=== PATIENT | male | born 1950 | race African-American/Black ===

== ENCOUNTER 2018-02-27 19:07 | Observation (INO) | payer MEDICARE ==
[2018-02-27 20:28] LABS: Troponin I 0.063 ng/mL (< 0.028)
[2018-02-27 23:37] LABS: Troponin I 0.072 ng/mL (< 0.028)
[2018-02-28] MEDS ORDERED: Guaifenesin DM 100-10/5 ML UDCUP PO PRN (00:47)
[2018-02-28] MEDS ORDERED: Acetaminophen 325 MG TAB PO PRN (00:47)
[2018-02-28] MEDS ORDERED: Senokot 8.6 MG TAB PO PRN (00:47)
[2018-02-28] MEDS ORDERED: Enoxaparin Sodium 80 MG/0.8 ML SYRINGE SC SCH (01:00)
[2018-02-28] MEDS: Sodium Chloride 0.9% 1,000 ML IV SCH ×2 (01:34→20:16)
[2018-02-28 01:59] VITALS: BMI 29.1
--- NOTE | 2018-02-28 04:26 | HP ---
REASON FOR ADMISSION: Possible transient ischemic attack, demand ischemia. HISTORY OF PRESENT ILLNESS: Please note patient does not recall why he is here in the hospital. Apparently, he was on the toilet and was unresponsive. He has had prior history of stroke 2 months back and the was concerned he might be having another stroke, so she took him to [facility]. He had complained of diarrhea yesterday and had right knee pain and he apparently hit his knee yesterday. Currently, he has no complaints of chest pain or palpitation. He is able to move all 4 extremities. He is talking fluently. The patient has trouble with memory. When he had a stroke 2 months back, patient had right-sided weakness and had some facial droop and dysarthria as well. The initial NIH was 9 and on arrival here, patient had NIH of 3. No complaints of fever. No complaints of cough or expectoration. 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 CURRENT MEDICATIONS: The patient is on Tylenol with Codeine as needed, Neurontin 300 mg with unknown frequency, atenolol 25 mg with unknown frequency, ranitidine 150 mg with unknown frequency, paroxetine 20 mg with unknown frequency, atorvastatin 20 mg at bedtime, lisinopril with hydrochlorothiazide 10 /12.5 mg daily. ALLERGIES: Allergic to PENICILLIN. PERSONAL HISTORY: Does not abuse alcohol or drugs. FAMILY HISTORY: The patient states his mom is still living and she lives with them. She has diabetes. Father of alcohol related complications at the age of 57 years. The patient lives with his second and has been for nearly 17 years. He has a total of 5 kids. REVIEW OF SYSTEMS: The following complete review of systems was negative, unless otherwise mentioned in the HPI or below: Constitutional: Weight loss or gain, ability to conduct usual activities. Skin: Rash, itching. Eyes: Double vision, pain. ENT/Mouth: Nose bleeding, neck stiffness, pain, tenderness. Cardiovascular: Palpitations, dyspnea on exertion, orthopnea. Respiratory: Shortness of breath, wheezing, cough, hemoptysis, fever or night sweats. Gastrointestinal: Poor appetite, abdominal pain, heartburn, nausea, vomiting, constipation, or diarrhea. Genitourinary: Urgency, frequency, dysuria, nocturia. Musculoskeletal: Pain, swelling. Neurologic/Psychiatric: Anxiety, depression. Allergy/Immunologic: Skin rash, bleeding tendency. CODE STATUS: FULL. Power of managing attorney is his . PHYSICAL EXAMINATION: GENERAL: The patient is a 67-year-old male who is currently not in any acute distress. VITAL SIGNS: Blood pressure 140/94, pulse 54 per minute, respiratory rate 18 per minute, temperature 97.9 degrees Fahrenheit, saturating 94% on room air. NECK: Supple, no elevated JVD. HEENT: Eyes: Extraocular muscles intact. Pupils reacting to light. Oral cavity: Mucous membranes are moist. No exudates or congestion. CARDIOVASCULAR SYSTEM: S1, S2 heard. Regular rhythm. RESPIRATORY SYSTEM: Air entry 1+ bilateral. No rales or rhonchi. ABDOMEN: Soft, bowel sounds heard. No tenderness, rigidity or guarding. EXTREMITIES: No peripheral edema. The patient has tenderness over the right knee. He appears to have mild effusion in the right knee. It is warm to touch , but no obvious tenderness over patella or the medial or lateral condyles. No tenderness over the tibial tuberosity either. Active and passive range of movements are normal. CENTRAL NERVOUS SYSTEM: He is alert and awake, responds well to questions. Cranial nerves are grossly intact. Strength is 5/5 in all four extremities. Reflexes are 2+ bilateral. Gait was not tested. PSYCHIATRIC SYSTEM: The patient's mood is euthymic. No hallucinations or delusions. LABORATORY DATA AND X-RAY FINDINGS: EKG done shows 73 beats per minute with nonspecific ST-T wave changes. White count of 6, H&H 15 and 47, platelet count 112 with 76% neutrophils. BUN 16, creatinine 1.4, serum bicarbonate 26, troponin I indeterminate peaking up to 0.10. CK-MB is 5.3. Liver enzymes are within normal limits. Albumin is 4.1. CT brain shows no acute intracranial abnormalities. Chest x-ray done shows no acute cardiopulmonary abnormalities. CLINICAL IMPRESSION AND PLAN: The patient will be under observation on the stroke unit. He has indeterminate cardiac enzymes and is for transient ischemic attack rule out. The patient has had recent cerebrovascular accident 2 months back with right-sided weakness. He also has tenderness over the right knee with recent injury. He seems to think it is one of his grandkids fell on his knee. We will follow transient ischemic attack evidence based protocol. He will have MRI and echo with 2D Doppler for left ventricular function. We will obtain lipid profile in the morning. He will be on aspirin 81 mg daily and we will keep a close eye on the platelets. We will continue his atenolol 25 mg daily, lisinopril 10 mg twice daily. We will switch him from Lipitor to Crestor 20 mg p.o. at bedtime and continue his Paxil as before. He will be gently hydrated with 60 mL per hour normal saline. The patient has a creatinine of 1.4, will be closely monitored. We will obtain a repeat EKG and see if nonspecific ST-T wave changes resolve or might be a chronic finding. JAIR
[2018-02-28 05:43] LABS: Anion Gap 9 mmol/L (10-20); BUN (Urea Nitrogen) 14 mg/dL (8.4-25.7); Calc. Creatinine Clearance 77 mL/min (70-130); Calcium 8.6 mg/dL (7.8-10.44); Carbon Dioxide 28 mmol/L (23-31); Cardiac Risk 2.6 (Less than 4.5); Chloride 106 mmol/L (98-107); Cholesterol 97 mg/dl (< 200 Desired); Estimated GFR-MDRD 74; Glucose 98 mg/dL (80-115); HDL Cholesterol 37 mg/dL (>60 Neg Risk); LDL Cholesterol, Calculated 49 mg/dL; Potassium 3.3 mmol/L (3.5-5.1); Sodium 140 mmol/L (136-145); Triglycerides 55 mg/dL (Less than 150)
[2018-02-28 06:12] LABS: Band 6 % (5-11); Eosinophils 4 % (0-10); Hemoglobin 13.1 g/dL (14.0-18.0); Lymphocytes 36 % (21-51); MDiff Complete? YES; Mean Corpuscular HGB CONC 32.7 g/dL (32.0-36.0); Mean Corpuscular Volume 88.8 fL (78.0-98.0); Mean Platelet Volume 9.5 fL (7.4-10.4); Monocytes 14 % (0-10); Neutrophil 40 % (42-75); PLT Morphology Comment Appears Decreased; Platelet Count 88 thou/uL (130-400); RBC Distribution Width 12.7 % (11.5-14.5); Red Blood Cell (RBC) Count 4.51 mill/uL (4.70-6.10); White Blood Cell (WBC) Count 4.7 thou/uL (4.8-10.8)
[2018-02-28] MEDS ORDERED: Enoxaparin Sodium 40 MG/0.4 ML SYRINGE SC SCH (09:00)
[2018-02-28] MEDS ORDERED: Atenolol 25 MG TAB PO SCH (09:00)
--- NOTE | 2018-02-28 09:19 | RAD ---
FIVE VIEWS OF THE RIGHT KNEE: INDICATION: Right knee pain. COMPARISON: None. FINDINGS: There is a bipartite patella. There is enthesopathic change about the patella. There is advanced os teoarthrosis of the right knee. Soft tissue swelling apparent. IMPRESSION: 1. Advanced osteoarthrosis of the right knee. 2. Bipartite patella. POS: [facility]
[2018-02-28] MEDS: Gabapentin 300 MG CAP PO SCH ×2 (10:10→20:12)
[2018-02-28] MEDS: PARoxetine 20 MG TAB PO SCH (10:10)
[2018-02-28] MEDS: Aspirin 81 mg Enteric Coated Tablet PO SCH (10:10)
[2018-02-28] MEDS: Lisinopril 10 MG TAB PO SCH ×2 (10:10→20:12)
[2018-02-28] MEDS: Famotidine 20 MG TAB PO SCH ×2 (10:10→20:12)
[2018-02-28] MEDS ORDERED: Regadenoson 0.4 MG/5 ML SYRINGE ONE (12:48)
--- NOTE | 2018-02-28 14:33 | CON ---
DATE OF CONSULTATION: 02/28/2018 REASON FOR CONSULTATION: Episode of weakness with reduced responsiveness. The patient has a previous history of stroke. HISTORY OF PRESENT ILLNESS: Mr. Pedersen is a pleasant 67-year-old gentleman. The patient was brought to the hospital for evaluation. The patient's is here and is able to give quite a good history. The patient's states that the patient was having a lot of problems with diarrhea, he is getting up to the bathroom to go to the toilet frequently at night. She went into the bathroom to find him sitting on the toilet, he looked as if he was feeling extremely weak and he states that he was feeling very weak. His asked him how he is doing, he said not good. He remained conscious. came to the hospital for evaluation. He did not have unilateral weakness or numbness. The other past history is there was a history of what the states was a stroke earlier this year. She said they initially brought him to the hospital, but they told him that it is probably related to urinary infection and at that time had confusion and disorientation. They took him to the [facility] and told that he had a stroke. He was evaluated there at the [facility]. The thinks with some type of imaging like a CAT scan. No chest pain or pressure. PAST MEDICAL HISTORY: 1. Hypertension. 2. Seizure disorder. 3. Previous stroke. PAST SURGICAL HISTORY: 1. Left shoulder surgery. 2. Foot surgery. 3. Hernia repair. MEDICATIONS: 1. Atenolol 25 mg a day. 2. Ranitidine 150 mg 3. Paroxetine. 4. Atorvastatin. 5. Lisinopril/hydrochlorothiazide. ALLERGIES: PENICILLIN. SOCIAL HISTORY: Does not use alcohol or drugs. Does not smoke. He said he used to smoke, but quit about 5 years ago. FAMILY HISTORY: Mother is still living with him. Father of alcohol- related complications. REVIEW OF SYSTEMS: Constitutional: No significant weight gain or loss. Vision : No changes. Hearing: No changes. Pulmonary: No cough or wheezing. Gastrointestinal: No nausea, vomiting, diarrhea. Skin: No rashes. Neurologic : No recent unilateral weakness or numbness. Psychiatric: No unusual depression or anxiety. Hematologic: No unusual bruising. Genitourinary: No burning with urination. Musculoskeletal: No unusual joint pains. PHYSICAL EXAMINATION: GENERAL: This is a pleasant 67-year-old gentleman resting comfortably. VITAL SIGNS: Blood pressure 138/95, pulse 64 regular. LUNGS: Clear. CARDIAC: Normal S1, normal S2. ABDOMEN: Soft, nontender. EXTREMITIES: No clubbing or cyanosis. There is no edema. Peripheral pulses. He has good dorsalis pedis pulses bilaterally. IMAGING: EKG, generally it is sinus rhythm with a first degree AV block, OK interval 0.216. There is also some evidence of second degree Mobitz type 1 block. The QRS duration is normal at 0.96, there is also non-conducted PACs. PERTINENT LABORATORY DATA: Troponin was in the indeterminate range at 0.063. ASSESSMENT: 1. Episode of decreased responsiveness, may be related to prolonged diarrhea. 2. History of hypertension. 3. History of stroke. 4. Indeterminate troponin. 5. Second degree block, likely it is type 1. There is one episode which looks like it could be type 2, but it seems to be preceded by PAC. PLAN: 1. Imaging of the brain was scheduled. 2. Carotid Doppler. 3. I will ask Dr. Barr for his opinion about what if he has second degree block. 4. We will go and schedule Lexiscan Cardiolite stress test. [facility]
--- NOTE | 2018-02-28 14:49 | ULT ---
CAROTID DOPPLER: DATE: 02/28/18. PROVIDED CLINICAL HISTORY: History of stroke. FINDINGS: Adame scale and color Doppler sonography with spectral analysis was performed of the extraaxial caroti d system bilaterally. Atherosclerotic plaque is noted within the left proximal internal carotid hernan ry. There is no evidence for a hemodynamically significant internal carotid artery stenosis by peak systolic velocity or ratio criteria. Antegrade flow is seen in the vertebral arteries. IMPRESSION: No sonographic evidence for hemodynamically significant internal carotid artery stenosis. POS: OFF
--- NOTE | 2018-02-28 17:29 | NM ---
CARDIAC SPECT 02/28/18 HISTORY: 67-year-old male with chest pain, stroke, hypertension. TECHNIQUE: A myocardial perfusion scan was performed using the single isotope one day protocol with technetium 9 9m Sestamibi. 11 millicuries was injected intravenously for the rest exam followed by 31 millicuries for the stress study. Pharmacologic stress with Lexiscan was monitored and interpreted by Dr. Bolanos. FINDINGS: Homogeneous tracer distribution is seen in the myocardial segments on stress and rest images without fixed or reversible defects. GATED SPECT LVEF: 46%. WALL MOTION EXAM: Mild global hypokinesis. IMPRESSION: No evidence of reversible ischemia. POS: JOMAR
[2018-02-28] MEDS ORDERED: Rosuvastatin 20 MG TAB PO SCH (21:00)
--- NOTE | 2018-02-28 23:24 | PDOC.PN ---
- Objective Resuscitation Status: Resuscitation Status FULL:Full Resuscitation Vital Signs & Weight: Vital Signs (12 hours) Temp Pulse Pulse Pulse Resp BP BP 02/28/18 20:00 97.7 F 62 18 02/28/18 17:22 97.6 F 74 16 02/28/18 12:40 70 67 141/91 H 162/96 H 02/28/18 11:57 97.5 F L 72 16 BP Pulse Ox 02/28/18 20:00 143/83 H 95 02/28/18 17:22 150/100 H 96 02/28/18 12:40 02/28/18 11:57 133/79 92 L Weight Admit Weight 203 lb Weight 203 lb I&O: 02/27/18 02/28/18 03/01/18 06:59 06:59 06:59 Intake Total 300 300 Output Total 200 Balance 100 300 Result Diagrams: 02/28/18 05:10 02/28/18 05:10 Dx/Plan - Plan * .
[2018-03-01] MEDS: Sodium Chloride 0.9% 1,000 ML IV SCH ×2 (00:09→18:11)
--- NOTE | 2018-03-01 09:10 | CON ---
DATE OF CONSULTATION: 03/01/2018 CONSULTING PHYSICIAN: Hospitalist Service IMPRESSION: 1. Probable small vessel stroke resulting in some left-sided weakness. 2. Past history of stroke. 3. Hypertension. 4. Aspirin failure. PLAN: 1. Add Plavix 75 mg per day. 2. Continue aspirin. 3. Continue Crestor. 4. PT evaluation to determine whether inpatient rehab is needed. Mr. Wilkerson is a 67-year-old black gentleman who came in with very vague complaints. He reports he has a tendency to list to the left, which he reports is new. He otherwise denies any slurred speech, di fficulty swallowing, headache, nausea, vomiting, vertigo, lateralized weakness or numbness. Initial CT scan was unremarkable. His carotid Doppler study was unremarkable for any stenosis. MRI of the b rain has been completed, but the results are pending. His laboratory studies were also all within no rmal limits. PAST MEDICAL HISTORY: Hypertension. ALLERGIES: PENICILLIN. MEDICATIONS: Aspirin, Pepcid, Neurontin, Zestril, Paxil, Crestor. SOCIAL HISTORY: No tobacco or alcohol use. FAMILY HISTORY: Noncontributory. REVIEW OF SYSTEMS: Otherwise, negative. PHYSICAL EXAMINATION: VITAL SIGNS: Blood pressure 174/101, pulse 70, respirations 20, temperature 99.4. HEENT: Pupils are equal and reactive. Conjunctivae are clear. Oropharynx clear. NECK: Supple. EXTREMITIES: No cyanosis. NEUROLOGIC: He is alert and cooperative. He is sitting at the bedside in no acute distress. His cr anial nerve exam shows some mild left facial flattening. Motor exam shows some subtle weakness on th e left, while sitting, he tends to list to the left side. Gait was not tested. Sensation was intact to light touch. No tremor or other abnormal movements were noted. LABORATORY STUDIES: Reviewed. SUMMARY: A 67-year-old man who has new onset of some left-sided weakness by his report. I suspect t hat he has suffered a small infarct resulting in these new neurologic symptoms. I would add Plavix a nd determine whether inpatient rehab is needed based on the significance of his balance difficulties.
[2018-03-01] MEDS: Lisinopril 10 MG TAB PO SCH (09:46)
[2018-03-01] MEDS: PARoxetine 20 MG TAB PO SCH (09:47)
[2018-03-01] MEDS: Aspirin 81 mg Enteric Coated Tablet PO SCH (09:48)
[2018-03-01] MEDS: Gabapentin 300 MG CAP PO SCH (09:48)
[2018-03-01] MEDS: Famotidine 20 MG TAB PO SCH (09:48)
--- NOTE | 2018-03-01 10:17 | MRI ---
BRAIN MRI WITHOUT CONTRAST: 03/01/2018 HISTORY: Blurred vision for two weeks. Transient ischemic attack. Assess for acute infarction. COMPARISON: None. TECHNIQUE: Multiplanar, multisequence MR imaging of the brain is obtained without contrast. FINDINGS: The diffusion weighted imaging demonstrates no evidence for acute infarction. Axial gradient echo im aging demonstrates no evidence for intracranial hemorrhage. Arterial flow voids at the axial level of the skull base appear unremarkable on the T2 weighted imagi ng. The regional bone marrow signal intensity appears grossly unremarkable. There are multiple old infarctions within the bilateral cerebellar hemispheres, right greater than le ft. There is moderate diffuse cerebral volume loss with associated prominence of the CSF containing space s. There is multifocal periventricular deep and subcortical white matter T2 and FLAIR hyperintensity , evidence of significant small vessel disease. IMPRESSION: Evidence of cerebral volume loss, small vessel disease, and multiple prior bilateral cerebellar infar ctions. There is no evidence for acute infarction or intracranial hemorrhage. POS: GERRI
[2018-03-01 15:58] VITALS: BP 156/93; TEMP 97.9
--- NOTE | 2018-03-01 19:41 | PRG ---
DATE OF SERVICE: 03/01/2018 SUBJECTIVE: Mr. Wilkerson is doing better today. No chest pain or pressure. Blood pressure is still hi gh 156/93, pulse 55, sinus on the monitor. He has some second degree AV block type 1. Stress test d id not show ischemia. He has normal ejection fraction. Carotid Doppler studies reveals no hemodynam ically significant internal carotid disease. Brain MRI revealed multiple old infarcts with bilateral cerebellar hemisphere within the bilateral ce rebral hemispheres, right greater than left. There was some evidence to suggest some significant sma ll vessel disease. ASSESSMENT: 1. Recurrent strokes some indication is likely small vessel disease. 2. Second degree AV block type 1. 3. Some premature atrial contractions. 4. Hypertension. PLAN: 1. He is on aspirin. 2. Plavix has been added. 3. Consideration for outpatient monitoring could be given to screen for any atrial arrhythmias, so f ar none of have been seen even the LINQ could be considered if no dysrhythmias were identified in ter ms of atrial arrhythmias. For now, none have been identified. He has been on the monitor for severa l days now. It is okay to me to go to rehabilitation.
[2018-03-02] MEDS ORDERED: Clopidogrel Bisulfate 75 MG TAB PO SCH (09:00)
== END 2018-03-01 19:01 ==
LOC: ERS 19:07 → 2SE 23:41
PROVIDERS: ADMIT Internal Medicine; ATTEND Internal Medicine
DX: R53.1 Weakness (principal); I10 Essential (primary) hypertension; I44.1 Atrioventricular block, second degree; Z88.0 Allergy status to penicillin; Z86.73 Personal history of transient ischemic attack (TIA), and cerebral infarction without residual deficits; Z79.82 Long term (current) use of aspirin; Z79.899 Other long term (current) drug therapy; Z87.891 Personal history of nicotine dependence
CPT/HCPCS: 70551; 73564; 78452; 80048; 80061; 82274; 84484; 85025; 93005 ×2; 93017; 93306; 93880; 96360; 96361 ×2; 96372; 97116 ×2; 97139 ×4; 97530; 98960; 99285; A9500; G0378; G8978; G8979; G8987; G8988; 36415; 93010; A4216; G9168-GN-CJ; G9169-GN-CI; J1650; J2785

== ENCOUNTER 2018-05-26 13:40 | Inpatient (IN) | payer MEDICARE ==
[2018-05-26 15:09] LABS: #Lymphocytes 2.3 thou/uL (1.20-3.40); #Monocytes 0.7 thou/uL (0.11-0.59); #Neutrophils 4.1 thou/uL (1.40-6.50); %Basophils 0.3 % (0.0-1.0); %Eosinophils 0.3 % (0.0-10.0); %Lymphocytes 31.9 % (21.0-51.0); %Monocytes 9.4 % (0.0-10.0); Hemoglobin 12.9 g/dL (14.0-18.0); Mean Corpuscular HGB CONC 32.8 g/dL (32.0-36.0); Mean Corpuscular Hemoglobin 29.2 pg (27.0-31.0); Mean Corpuscular Volume 89.1 fL (78.0-98.0); Mean Platelet Volume 9.8 fL (7.4-10.4); Platelet Count 124 thou/uL (130-400); RBC Distribution Width 15.5 % (11.5-14.5); Red Blood Cell (RBC) Count 4.39 mill/uL (4.70-6.10); White Blood Cell (WBC) Count 7.1 thou/uL (4.8-10.8)
[2018-05-26 15:22] LABS: Prothrombin Time 13.5 SEC (12.0-14.7)
[2018-05-26 15:23] LABS: PTT 28.4 SEC (22.9-36.1)
[2018-05-26 15:30] LABS: ALT (SGPT) 34 U/L (8-55); AST (SGOT) 36 U/L (5-34); Albumin 3.4 g/dL (3.4-4.8); Alkaline Phosphatase 50 U/L (40-150); Anion Gap 9 mmol/L (10-20); BUN (Urea Nitrogen) 14 mg/dL (8.4-25.7); Bilirubin, Total 0.7 mg/dL (0.2-1.2); Calc. Creatinine Clearance 0 mL/min (70-130); Calcium 9.2 mg/dL (7.8-10.44); Carbon Dioxide 30 mmol/L (23-31); Chloride 101 mmol/L (98-107); Estimated GFR-MDRD 73; Globulin 3.6 g/dL (2.4-3.5); Glucose 81 mg/dL (80-115); Potassium 3.8 mmol/L (3.5-5.1); Sodium 136 mmol/L (136-145)
[2018-05-26] MEDS ORDERED: levETIRAcetam In NaCl (Iso-Os) 1,000 MG in Premix Bag 1 BAG IVPB SCH (15:30)
[2018-05-26 16:26] LABS: Troponin I 0.084 ng/mL (< 0.028)
[2018-05-26 19:22] LABS: Troponin I 0.086 ng/mL (< 0.028)
[2018-05-26 22:02] LABS: Troponin I 0.084 ng/mL (< 0.028)
[2018-05-26 23:20] VITALS: BMI 30.7
[2018-05-26] MEDS ORDERED: Ondansetron HCl/PF 4 MG/2 ML Vial IVP PRN (23:32)
[2018-05-26] MEDS ORDERED: Ondansetron ODT 4 MG TAB SL PRN (23:32)
[2018-05-26] MEDS ORDERED: Acetaminophen 325 MG TAB PO PRN (23:32)
[2018-05-26] MEDS ORDERED: Lorazepam 2 MG/ML VIAL SLOW IVP PRN (23:42)
[2018-05-26] MEDS ORDERED: Aspirin 325 MG TAB PO SCH (23:59)
[2018-05-27] MEDS: Sodium Chloride 0.9% 1,000 ML IV SCH ×2 (00:20→21:00)
[2018-05-27] MEDS ORDERED: levETIRAcetam In NaCl (Iso-Os) 1,000 MG in Premix Bag 1 BAG IVPB SCH (04:00)
[2018-05-27 05:33] LABS: Anion Gap 9 mmol/L (10-20); BUN (Urea Nitrogen) 16 mg/dL (8.4-25.7); Calc. Creatinine Clearance 89 mL/min (70-130); Calcium 8.8 mg/dL (7.8-10.44); Carbon Dioxide 28 mmol/L (23-31); Chloride 103 mmol/L (98-107); Estimated GFR-MDRD 85; Glucose 90 mg/dL (80-115); Potassium 3.3 mmol/L (3.5-5.1); Sodium 137 mmol/L (136-145)
[2018-05-27 05:35] LABS: #Basophils 0.1 thou/uL (0.0-0.2); #Eosinphils 0.1 thou/uL (0.0-0.7); #Lymphocytes 2.3 thou/uL (1.20-3.40); #Monocytes 0.8 thou/uL (0.11-0.59); #Neutrophils 2.7 thou/uL (1.40-6.50); %Basophils 0.9 % (0.0-1.0); %Monocytes 13.2 % (0.0-10.0); %Neutrophils 45.8 % (42.0-75.0); Hemoglobin 12.1 g/dL (14.0-18.0); Mean Corpuscular HGB CONC 32.9 g/dL (32.0-36.0); Mean Corpuscular Hemoglobin 29.2 pg (27.0-31.0); Mean Corpuscular Volume 88.6 fL (78.0-98.0); Mean Platelet Volume 9.8 fL (7.4-10.4); Platelet Count 118 thou/uL (130-400); RBC Distribution Width 15.6 % (11.5-14.5); Red Blood Cell (RBC) Count 4.13 mill/uL (4.70-6.10); White Blood Cell (WBC) Count 5.9 thou/uL (4.8-10.8)
--- NOTE | 2018-05-27 07:08 | HP ---
CHIEF COMPLAINT: Seizure. HISTORIAN: The patient's . HISTORY OF PRESENT ILLNESS: This is a 67-year-old male with past medical history of generalized seiz ures, CVA, GERD, hyperlipidemia, hypertension presenting with shaking and urinary incontinence. Per the , the patient was sleeping in bed, woke up, started shaking and the patient had urinary incon tinence. The patient had a blank stare. The patient's tried to shake patient out of it, but th e patient was unresponsive and was not responding to her. The patient had weakness. The patient had impaired speech at that time and EMS was called and the patient was sent to [facility]. Th e patient was then transferred to our ED to be evaluated since [facility] does not have a ne urologist. NOTE: The states that the patient takes valproic acid, but in the past couple of weeks the mitch ent ran out of his medications. The patient has not been receiving his full dose of valproic acid fo r his seizures. REVIEW OF SYSTEMS: Positive for generalized weakness, seizure activity, change in speech. PAST MEDICAL HISTORY: GERD, hyperlipidemia, hypertension, generalized seizures, cerebrovascular acci dent. FAMILY HISTORY: Noncontributory to this visit. SURGICAL HISTORY: The patient has hernia repair, knee replacement, left shoulder repair. PSYCHIATRIC HISTORY: No previous psychiatric history. SOCIAL HISTORY: The patient denies alcohol use, denies IV drug use. Denies illicit drug use. Dulce Maria puga lives at home with . The patient is a former tobacco smoker. ALLERGIES: Patient is allergic to PENICILLINS. MEDICATIONS: Patient is on atenolol, ranitidine, atorvastatin, lisinopril, hydrochlorothiazide, clop idogrel, donepezil, Gabapentin and metoprolol tartrate. PHYSICAL EXAMINATION: VITAL SIGNS: Blood pressure is 159/90, pulse of 53, respiratory rate of 16, temperature of 98.0, O2 saturation of 97 on room air. GENERAL: The patient is lying on his left side. The patient does not appear to be in any distress. The patient is currently speaking in full sentences, alert, oriented to person, to place and time. HEENT: Normocephalic, atraumatic. Pupils are equally round and reactive to light. Extraocular move ments are intact. No scleral icterus. No conjunctival pallor. NECK: Supple, no JVD. Trachea is midline. RESPIRATORY: Clear to auscultation bilaterally. No wheezing, no rales, no rhonchi appreciated. CARDIAC: Positive S1, S2. Regular rate and rhythm. ABDOMEN: Soft, nontender, nondistended, positive bowel sounds in all quadrants. BACK: Normal, full range of motion. No tenderness. EXTREMITIES: Upper extremities, 5/5 upper extremity strength and 5/5 lower extremity strength, good pulses of the upper and lower extremities bilaterally. There is slight edema present at the ankles. NEUROLOGIC: Cranial nerve through grade II-XII grossly intact. No neurologic deficit noted. The rosario johnston is able to follow commands, alert, oriented x3. SKIN: Warm, dry, and intact. PSYCHIATRIC: The patient has a normal affect. EKG shows sinus bradycardia at 48. ED MEDICATION: The patient was given 1000 IV Keppra. LABORATORY: WBC 7.1, hemoglobin 12.9, hematocrit 39.1, platelet count 124. PT is 13.5, INR is 1.0. Sodium 136, potassium is 3.8, chloride 101, carbon dioxide is 30, anion gap of 9, BUN is 14, creatin ine is 1.20, GFR is 73, troponin 0.084. AST is 36, ALT is 34. Valproic acid 33.4. ASSESSMENT AND PLAN: 1. This is a 67-year-old male with extensive history of general seizures be admitted for seizure. A t this point, EEG has been ordered. Neurology has been consulted. We have started the patient on Ke ppra 500 b.i.d. and Ativan 2 mg every 15 minutes p.r.n. for future seizures. At this point, we are s eeing the patient. Seizure was started because the patient has not been taking his medication as pre scribed. There has been some underlying noncompliance. 2. Hypertension. We will monitor the patient's blood pressure closely. We will give the patient bl ood pressure medication as needed. 3. Hyperlipidemia. We will continue the patient on current management. 4. History of cerebrovascular accident. We will continue the patient on his current management. 5. Deep venous thrombosis and gastrointestinal prophylaxis.
[2018-05-27] MEDS ORDERED: Enoxaparin Sodium 40 MG/0.4 ML SYRINGE SC SCH (09:00)
--- NOTE | 2018-05-27 09:24 | PDOC.PN ---
- Subjective Encounter Start Date: 05/27/18 Encounter Start Time: 09:22 - Objective Resuscitation Status: Resuscitation Status FULL:Full Resuscitation MAR Reviewed: Yes Vital Signs & Weight: Vital Signs (12 hours) Temp Pulse Resp BP Pulse Ox 05/27/18 07:38 97.5 F L 54 L 16 134/82 92 L 05/27/18 04:00 97.6 F 60 16 135/74 96 05/27/18 00:00 97.5 F L 64 18 137/67 96 05/26/18 22:20 97.9 F 62 18 180/88 H 98 Weight Weight 208 lb 2 oz I&O: 05/26/18 05/27/18 05/28/18 06:59 06:59 06:59 Intake Total 360 Balance 360 Result Diagrams: 05/27/18 04:35 05/27/18 04:35 Phys Exam - Physical Examination Constitutional: NAD Neck: no JVD Respiratory: clear to auscultation bilateral Cardiovascular: no significant murmur Gastrointestinal: soft, positive bowel sounds Musculoskeletal: no edema Neurological: non-focal Dx/Plan (1) Seizure disorder Code(s): G40.909 - EPILEPSY, UNSP, NOT INTRACTABLE, WITHOUT STATUS EPILEPTICUS Status: Acute (2) HTN (hypertension) Code(s): I10 - ESSENTIAL (PRIMARY) HYPERTENSION Status: Acute Qualifiers: Hypertension type: essential hypertension Qualified Code(s): I10 - Essential (primary) hypertension (3) Dyslipidemia Code(s): E78.5 - HYPERLIPIDEMIA, UNSPECIFIED Status: Chronic (4) Noncompliance Code(s): Z91.19 - PATIENT'S NONCOMPLIANCE W OTH MEDICAL TREATMENT AND REGIMEN Status: Acute - Plan patient now stale on keppra, switch to po -: cont slected home meds -: await neuro input * .
[2018-05-27] MEDS: Famotidine/PF 20 mg/2ml Vial SLOW IVP SCH (10:53)
[2018-05-27] MEDS ORDERED: Rosuvastatin 20 MG TAB PO SCH (21:00)
[2018-05-27] MEDS ORDERED: Famotidine 20 MG TAB PO SCH (21:00)
[2018-05-27] MEDS ORDERED: Gabapentin 300 MG CAP PO SCH (21:00)
[2018-05-27] MEDS ORDERED: levETIRAcetam 500 MG TAB PO SCH (21:00)
[2018-05-28] MEDS: Famotidine/PF 20 mg/2ml Vial SLOW IVP SCH (01:17)
[2018-05-28] MEDS: Sodium Chloride 0.9% 1,000 ML IV SCH (04:20)
[2018-05-28 04:28] VITALS: BP 156/81; TEMP 98
--- NOTE | 2018-05-28 07:48 | DIS ---
TRANSFER OF CARE NOTE DATE OF ADMISSION: 05/26/2018 DATE OF DISCHARGE: 05/28/2018 DISCHARGE DISPOSITION: Discharged home. PRIMARY CARE PROVIDER: Idalia Lockhart. FINAL DIAGNOSES: 1. Seizure disorder, noncompliance with anti-seizure medications. 2. Hypertension. 3. Dyslipidemia. 4. History of stroke in the past. DISCHARGE MEDICATIONS: New, Keppra 500 mg p.o. b.i.d. DISCONTINUED MEDICATIONS: Depakote. HOME MEDICATIONS CONTINUED: Thiamine 100 mg a day, ranitidine 150 mg twice a day, donepezil 10 mg a day, atenolol 25 mg a day, hydrochlorothiazide 25 mg a day, lisinopril 40 mg a day, Neurontin 300 mg twice a day, Crestor 20 mg a day. ALLERGIES: PENICILLIN. PENDING AT THE TIME OF DISCHARGE: Nothing. CODE STATUS: FULL CODE. HOSPITAL COURSE: [facility] a seizure. He was treated with Keppra with resolution of his seizure activity. His laborator y revealed a low valproic acid. His comp metabolic profile showed a minimal abnormality of an AST of 36. He did have elevated troponins, but it was 0.08, 0.08, 0.08, flattened suspected to be incident al. He had no chest pain, no shortness of breath. CBC showed a minor anemia of 12.9, normocytic nor mochromic, platelet count was 124,000, white count 7.1. The patient is being continued on Keppra, sw itching back to his valproic acid been discussed with him, he would prefer to be discharged today for followup with his PCP on current medications. Prescription has been written. He has been instructe d to see his PCP in 1 week. CONSULTATIONS: None. PROCEDURES: None.
[2018-05-28] MEDS ORDERED: Donepezil HCl 10 MG TAB PO SCH (09:00)
[2018-05-28] MEDS ORDERED: Lisinopril 20 MG TAB PO SCH (09:00)
[2018-05-28] MEDS ORDERED: Hydrochlorothiazide 25 MG TAB PO SCH (09:00)
[2018-05-28] MEDS ORDERED: Atenolol 25 MG TAB PO SCH (09:00)
--- NOTE | 2018-05-28 09:19 | EEG ---
Referring Physician: Nessa CHILDERS EEG # [id number] TEST TYPE: ROUTINE PORTABLE INPATIENT REPORT: AN EEG USING THE INTERNATIONAL TEN-TWENTY SYSTEM OF ELECTRODE PLACEMENT WAS PERFORMED. The background activity is an 8-9 hertz alpha frequency. The patient remained awake throughout the study. Photic stimulation was unremarkable. No epileptiform features were present. IMPRESSION: NORMAL AWAKE EEG. Clamp Carrier Operator: CAROL[place] Supply Clerk: EEG.JASON ADAM
== END 2018-05-28 09:10 | disposition home or self-care (01) | DRG 101 ==
LOC: ERS 13:40 → 2SE 22:15
PROVIDERS: ADMIT Internal Medicine; ATTEND Internal Medicine
DX: G40.909 Epilepsy, unspecified, not intractable, without status epilepticus (principal); I69.351 Hemiplegia and hemiparesis following cerebral infarction affecting right dominant side; I10 Essential (primary) hypertension; E78.5 Hyperlipidemia, unspecified; Z91.19 Patient's noncompliance with other medical treatment and regimen; Z91.81 History of falling; K21.9 Gastro-esophageal reflux disease without esophagitis; Z87.891 Personal history of nicotine dependence; R32 Unspecified urinary incontinence
CPT/HCPCS: 36415; 80048; 80053; 80164; 83735; 84443; 84484; 85025; 85610; 85730; 93005; 95816; 95819; 96365; 96366; A4216; J1650; J1953; S0028

== ENCOUNTER 2018-07-06 14:20 | Inpatient (IN) | payer MEDICARE ==
[~2018-07-06 14:20] MED LIST: ISOVUE-370 76%-LOCM 1 ML ONE
[2018-07-06 14:52] LABS: #Eosinphils 0.1 thou/uL (0.0-0.7); #Lymphocytes 5.1 thou/uL (1.20-3.40); #Monocytes 1.7 thou/uL (0.11-0.59); #Neutrophils 5.1 thou/uL (1.40-6.50); %Eosinophils 1.1 % (0.0-10.0); %Lymphocytes 42.8 % (21.0-51.0); %Neutrophils 42.1 % (42.0-75.0); Hemoglobin 11.1 g/dL (14.0-18.0); Mean Corpuscular HGB CONC 33.3 g/dL (32.0-36.0); Mean Corpuscular Volume 89.9 fL (78.0-98.0); Mean Platelet Volume 8.2 fL (7.4-10.4); Platelet Count 112 thou/uL (130-400); RBC Distribution Width 13.5 % (11.5-14.5); Red Blood Cell (RBC) Count 3.71 mill/uL (4.70-6.10)
[2018-07-06 14:55] LABS: INR-International Normal Ratio 2.1; Prothrombin Time 23.9 SEC (12.0-14.7)
[2018-07-06 14:56] LABS: PTT 62.9 SEC (22.9-36.1)
[2018-07-06 14:57] LABS: ALT (SGPT) 60 U/L (8-55); AST (SGOT) 68 U/L (5-34); Albumin 1.8 g/dL (3.4-4.8); Alkaline Phosphatase 27 U/L (40-150); BUN (Urea Nitrogen) 40 mg/dL (8.4-25.7); Bilirubin, Total 0.3 mg/dL (0.2-1.2); CK (CPK) 122 U/L (30-200); Calc. Creatinine Clearance 0 mL/min (70-130); Chloride 98 mmol/L (98-107); Estimated GFR-MDRD 67; Globulin 2.6 g/dL (2.4-3.5); Glucose 157 mg/dL (80-115); Lipase 75 U/L (8-78); Protein, Total 4.4 g/dL (5.8-8.1)
[2018-07-06 15:02] LABS: CKMB 2.8 ng/mL (0-6.6); Troponin I 0.027 ng/mL (< 0.028)
--- NOTE | 2018-07-06 15:12 | RAD ---
PORTABLE CHEST 1 VIEW: Date: 07/06/18 Time: 0252 hours HISTORY: Respiratory failure. FINDINGS/IMPRESSION: There is an endotracheal tube with tip at the level of the georgette. The heart size is borderline. The aorta is tortuous. No focal areas of consolidation, pneumothoraces, cain pulmonary edema, or pleural effusions are seen. There are degenerative changes in the right shoulder joint. Discussed over the telephone with ER physician, Dr. Valverde, at 1458 hours. CODE CR. POS: [facility]
[2018-07-06 15:13] LABS: Carbon Dioxide Greater than 75 mmol/L (23-31)
[2018-07-06 15:14] LABS: Calcium 5.9 mg/dL (7.8-10.44); Sodium Greater than 175 mmol/L (136-145)
[2018-07-06 15:23] LABS: Actual Bicarbonate (HCO3a) 12.2 mEq/L (22-28); Analyzer IN Cardio ER; CO2 Tension 37.2 mmHg (35.0-45.0); Calcium, Ionized 1.41 mmol/L (1.12-1.30); Carboxyhemoglobin (COHb) 0.3 gm% (0.0-3.0); Hemoglobin (Hb) 13.5 g/dL (14.0-18.0); O2 Tension (PaO2) 452.3 mmHg (> 80.0); Potassium - ABG Lab 5.03 mmol/L (3.70-5.30)
[2018-07-06] MEDS ORDERED: Norepinephrine 8 MG/0.9% NS 250 ML ONE ×2 (15:24→20:53)
[2018-07-06 15:53] LABS: Puncture Site ALINE; pH, Arterial 7.14 (7.35-7.45)
--- NOTE | 2018-07-06 16:18 | RAD ---
PORTABLE CHEST ONE VIEW: 07/06/18 at 3:56 p.m. HISTORY: Respiratory failure. FINDINGS/IMPRESSION: Comparison made with earlier exam of 2:52 p.m. There has been interval repositioning of the endotracheal tube with tip above 3 cm above the level of the georgette. A nasogastric tube can be traced into the stomach with tip excluded from the film. There is a right subclavian central line with tip in the projection of the SVC. The heart size is enlarge d. No focal areas of consolidation, pneumothoraces, cain pulmonary edema, or large effusions are see n. POS: [facility]
[2018-07-06 16:51] LABS: Actual Bicarbonate (HCO3a) 14.7 mEq/L (22-28); Analyzer IN Cardio ER; Base Excess (BEa) -10.8 mEq/L (-2.0 to +3.0); CO2 Tension 31.8 mmHg (35.0-45.0); Calcium, Ionized 1.15 mmol/L (1.12-1.30); Carboxyhemoglobin (COHb) 0.3 gm% (0.0-3.0); Hemoglobin (Hb) 13.2 g/dL (14.0-18.0); O2 Tension (PaO2) 452.9 mmHg (> 80.0); Potassium - ABG Lab 4.23 mmol/L (3.70-5.30); pH, Arterial 7.28 (7.35-7.45)
[2018-07-06 17:09] LABS: Puncture Site ALINE
[2018-07-06 17:37] LABS: Bilirubin Negative (Negative); Blood, Urine Large (Negative); Clarity TURBID (Clear); Glucose, Urine (Dipstick) Negative (Negative); Leukocyte Trace (Negative); Nitrite Negative (Negative); Protein, Urine (Dipstick) 300 mg/dL (Neg-Trace); Specific Gravity, Urine 1.019 (1.002-1.036); Urobilinogen 0.2 mg/dL (0.2-1.0); pH, Urine 6.5 (5.0-9.0)
[2018-07-06 17:40] LABS: Bacteria/HPF 1+ HPF (None Seen); Squamous Epithelial 0-3 HPF (0-3)
[2018-07-06 17:42] LABS: Pathc Cast-AUWi Flag 2.57 (0-2.49); Yeast-AUWi Flag 59.3 (0-25.0)
[2018-07-06 17:51] LABS: Other Casts/LPF None Seen LPF (0-3 Hyaline); Sperm/HPF 1+ HPF (None Seen); Yeast-All Forms None Seen HPF (None Seen)
[2018-07-06 18:05] LABS: Hemoglobin 12.2 g/dL (14.0-18.0); Mean Corpuscular HGB CONC 31.8 g/dL (32.0-36.0); Mean Corpuscular Hemoglobin 29.6 pg (27.0-31.0); Mean Corpuscular Volume 92.9 fL (78.0-98.0); Mean Platelet Volume 7.7 fL (7.4-10.4); Platelet Count 152 thou/uL (130-400); RBC Distribution Width 13.7 % (11.5-14.5); Red Blood Cell (RBC) Count 4.14 mill/uL (4.70-6.10)
[2018-07-06 18:20] LABS: Band 13 % (5-11); Burr Cells SLIGHT = 2-5 cells (100X) (0-1/hpf); Lymphocytes 12 % (21-51); MDiff Complete? YES; Metamyelocyte 3 % (0-0); Monocytes 10 % (0-10); Myelocyte 3 % (0-0); Neutrophil 57 % (42-75); Nucleated RBC 1 % (0); Ovalocytes SLIGHT = 2-5 cells (100X) (0-1/hpf); PLT Morphology Comment Appears Adequate; Polychromasia SLIGHT = 2-3 cells (100X) (0-2/hpf); Reactive Lymphocytes 2 % (0-10); Schistocytes SLIGHT = 2-5 cells (100X) (0-1/hpf)
[2018-07-06] MEDS ORDERED: CCU Electrolyte Replacement 1 EACH IVPB ONE (18:29)
[2018-07-06] MEDS ORDERED: Potassium Chloride 20 MEQ TAB PO PRN (18:34)
[2018-07-06] MEDS ORDERED: Potassium Phosphate 9 MMOL in Sodium Chloride 0.9% 100 ML IVPB PRN (18:34)
[2018-07-06] MEDS ORDERED: Potassium Chloride 40 MEQ in Premix Bag 1 BAG IVPB PRN (18:34)
[2018-07-06] MEDS ORDERED: Potassium Phosphate 12 MMOL in Sodium Chloride 0.9% 250 ML 250 ML IV PRN (18:34)
[2018-07-06] MEDS ORDERED: Potassium Phosphate 15 MMOL in Sodium Chloride 0.9% 250 ML 250 ML IV PRN (18:34)
[2018-07-06] MEDS ORDERED: Magnesium 2 GM/NS 0.9% 100 ML 2 GM in Premix Bag 1 BAG IVPB PRN (18:34)
[2018-07-06] MEDS ORDERED: CCU ELECTROLYTE REPLACEMENT PROTOCOL FS PRN (18:34)
[2018-07-06] MEDS ORDERED: Magnesium Oxide 400 MG TAB PO PRN ×2 (18:34)
[2018-07-06] MEDS ORDERED: Potassium Chloride 40 MEQ in Sodium Chloride 0.9% 250 ML 250 ML IVPB PRN (18:34)
[2018-07-06 18:42] LABS: ALT (SGPT) 206 U/L (8-55); AST (SGOT) 252 U/L (5-34); Albumin 2.5 g/dL (3.4-4.8); Alkaline Phosphatase 43 U/L (40-150); Anion Gap 23 mmol/L (10-20); BUN (Urea Nitrogen) 50 mg/dL (8.4-25.7); Bilirubin, Total 0.6 mg/dL (0.2-1.2); Calc. Creatinine Clearance 0 mL/min (70-130); Carbon Dioxide 14 mmol/L (23-31); Chloride 108 mmol/L (98-107); Estimated GFR-MDRD 33; Globulin 3.3 g/dL (2.4-3.5); Glucose 232 mg/dL (80-115); Potassium 4.5 mmol/L (3.5-5.1); Protein, Total 5.8 g/dL (5.8-8.1); Sodium 140 mmol/L (136-145)
[2018-07-06] MEDS ORDERED: Vancomycin HCl 1 GM in Premix Bag 1 BAG IVPB SCH ×3 (18:45→22:00)
[2018-07-06 18:48] LABS: Lactic Acid 8.2 mmol/L (0.5-2.2)
[2018-07-06] MEDS ORDERED: Dextrose 5% in Water 1,000 ML IV PRN (18:50)
[2018-07-06] MEDS ORDERED: Dextrose 50% Abboject 50 ML SYRINGE SLOW IVP PRN (18:50)
[2018-07-06] MEDS ORDERED: Heparin 10,000 UNITS/ 10 ML VIAL SLOW IVP SCH (19:15)
[2018-07-06] MEDS ORDERED: Heparin 25,000 units/D5W 500 ML IVPB SCH (19:15)
--- NOTE | 2018-07-06 19:21 | CT ---
CERVICAL SPINE CT WITHOUT CONTRAST: 07/06/18 COMPARISON: None. HISTORY: CVA, UTI, status post CPR. TECHNIQUE: Serial axial CT imaging at 2.5 mm intervals from thoracic inlet through skull base without contrast. Coronal and sagittal reformatted imaging obtained. FINDINGS: The occipital condyles appear grossly unremarkable. The dens and C1-2 articulation are within normal limits. The C1 ring is intact. There is mild degenerative change at the atlantoaxial interspace. There is prominent degenerative end plate change noted throughout the cervical spine, particularly at the C3-4 through C7-T1 levels. There is posterior osteophyte formation at C3-4 and C4-5. No evidence of prevertebral soft tissue swelling. The vertebral artery on the left is markedly tortuous at C4 with associated erosion of the C4 vertebr al body laterally. Imaged lung apices grossly unremarkable. Incompletely imaged endotracheal tube and nasogastric tube p resent. IMPRESSION: Multilevel cervical spine degenerative change. No acute fracture or evidence of dislocation is seen w ithin the cervical spine. POS: [facility]
[2018-07-06 19:26] LABS: Hemoglobin 12.4 g/dL (14.0-18.0); Platelet Count 157 thou/uL (130-400)
--- NOTE | 2018-07-06 19:27 | CT ---
HEAD CT WITHOUT CONTRAST 07/06/18 COMPARISON: 02/27/18. HISTORY: Urinary tract infection, stroke, CPR. TECHNIQUE: Serial axial CT imaging at 5 mm intervals from vertex through skull base without contrast. FINDINGS: There is an old fracture involving the medial orbital wall on the right. The imaged paranasal sinuses/mastoid air cells are unchanged. No displaced calvarial fracture. 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 No intracranial hemorrhage, midline shift, or mass effect. There is moderate diffuse cerebral volume loss with associated prominence of the CSF containing spaces. IMPRESSION: Stable head CT - no evidence for intracranial hemorrhage. If there is clinical concern for acute infa rction, followup brain MRI is suggested. POS: [facility]
--- NOTE | 2018-07-06 19:35 | CT ---
CT OF ABDOMEN AND PELVIS 07/06/18 HISTORY: Unresponsive patient. TECHNIQUE: Serial axial CT imaging obtained at 5 mm intervals from lung bases through pubic symphysis with IV co ntrast. Coronal reformatted imaging obtained. FINDINGS: Imaged lung bases grossly unremarkable. Nasogastric tube extends into the gastric body. No free intra peritoneal air or fluid. Huang catheter seen within the urinary bladder. The hepatic parenchyma demonstrates a mildly irregular peripheral margin suggesting possible underlyi ng hepatocellular disease. No focal liver lesion is seen. The gallbladder, spleen, and pancreas appea r grossly unremarkable as do bilateral adrenal glands. Right kidney is unremarkable. There is a nonobstructing stone in the mid pole of the left kidney sayra uring 4 mm and there is a prominent stone in the lower pole of the left kidney measuring 1.5 cm. Limi norman assessment of the bowel without oral contrast media demonstrates no evidence for obstruction or i nflammatory change. There is scattered atherosclerotic calcification of the abdominal aorta and its branches. No lymphade nopathy is seen within the abdomen or the pelvis. Review of the osseous structures demonstrates multilevel lower lumbar spine facet hypertrophic change . No worrisome lytic or blastic bone lesions. There are a few scattered fluid filled nondilated loops of small bowel within the abdomen/pelvis. IMPRESSION: Numerous incidental findings as detailed above. No free intraperitoneal air or evidence of bowel obst ruction. POS: [facility]
--- NOTE | 2018-07-06 19:51 | CT ---
CT ANGIOGRAM OF THE CHEST: 07/06/18 COMPARISON: None. HISTORY: Unresponsive patient. Assess for pulmonary embolism. TECHNIQUE: Serial axial CT imaging is obtained at 2.5 mm intervals from the thoracic inlet through the upper abd omen with contrast using a CT angiogram protocol. Coronal and oblique sagittal 3D reformatted imaging obtained. FINDINGS: Secondary to timing of the contrast bolus, opacification of the pulmonary arterial vasculature is sub optimal. No lymphadenopathy is seen in the axillary regions. No discrete mediastinal or hilar lymphadenopathy is seen. There is atherosclerotic calcification of the aortic arch and there is mild scattered atherosclerotic calcification of the coronary arteries. There is mild ectasia of the proximal descending thoracic ao rta measuring 4.1 cm in transverse dimension. There is a definite filling defect identified within the main pulmonary artery distally on the right consistent with pulmonary embolism. Clot also is seen within the anterior aspect of the lobar pulmona ry artery supplying the right upper lobe. No definite right middle lobe or right lower lobe PE. PE is also suspected within the lobar pulmonary artery supplying the left upper lobe on axial image 4 8. No definite PE seen in left lower lobe. Endotracheal tube in place. No pneumothorax seen on either side. Mild increased linear interstitial density is noted within bilateral lower lobes. No dominant pulmona ry parenchymal mass lesion or nodule. Review of the osseous structures demonstrates anterior right fifth, sixth, and seventh rib fractures. There may be an additional fracture involving the right fourth and fifth rib near the junction with the sternum. There is an anterior left fourth rib fracture, fifth rib fracture, and sixth rib fracture, likely on the basis of recent CPR. IMPRESSION: Bilateral pulmonary emboli. Multiple bilateral anterior rib fractures. Results called to Dr. Staley, 7:08 p.m. on 07/06/18. Code CR POS: [facility]
[2018-07-06] MEDS ORDERED: Cefepime 2 GM in Sodium Chloride 0.9% 100 ML IVPB SCH (20:00)
[2018-07-06 20:04] LABS: CKMB 16.8 ng/mL (0-6.6); Troponin I 1.142 ng/mL (< 0.028)
[2018-07-06] MEDS ORDERED: Atropine Sulfate 1 mg/10 ml Syringe ONE (21:00)
[2018-07-06] MEDS ORDERED: EPINEPHrine 1 MG/10 ML Abboject SYRINGE ONE (21:00)
[2018-07-06] MEDS ORDERED: levETIRAcetam 500 MG in Sodium Chloride 0.9% 100 ML IVPB SCH (21:00)
[2018-07-06] MEDS ORDERED: Sodium Bicarb 50 MEQ/50 ML Abboject 8.4% SYRINGE ONE (21:00)
[2018-07-06 21:18] VITALS: BMI 29.3
[2018-07-06] MEDS ORDERED: Lorazepam 2 MG/ML VIAL SLOW IVP PRN (21:28)
[2018-07-06] MEDS ORDERED: Fentanyl BOLUS 250 ML IVPB PRN (21:28)
[2018-07-06] MEDS ORDERED: DISCONTINUE PREVIOUS NARCOTIC PAIN MEDICATIONS AND BENZODIAZEPINES FS SCH (21:28)
[2018-07-06] MEDS ORDERED: fentaNYL Citrate/PF 2,000 MCG in Sodium Chloride 0.9% 60 ML IV SCH (21:28)
[2018-07-06] MEDS ORDERED: Vancomycin HCl 1.25 GM in Sodium Chloride 0.9% 250 ML 250 ML IVPB SCH (22:00)
--- NOTE | 2018-07-06 22:07 | PDOC.EVN ---
Event Note - Event Note Event Note: I was told by er physician that pt was made DNR. When i went to update pt's about the findings of Pulmonary emboli pt's requested me to make him a full code for now. She also stated that if his condition worsen she would most likley make him DNR again, but felt she had to give him a chance. I did tell her that his condition was still critical given multiple PEA arrest today. She stated that she understands but still wanted to given him one more chance. I have updated pt's nurse.
[2018-07-06] MEDS: Norepinephrine 8 MG/250 ML BAG IVPB PRN (22:10)
--- NOTE | 2018-07-06 22:26 | HP ---
DATE OF ADMISSION: 07/06/2018 CHIEF COMPLAINT: Cardiac arrest. HISTORY OF PRESENT ILLNESS: Patient is a 67-year-old male with past medical history of seizure, hist ory of strokes, dyslipidemia, who initially went to the DC in [place] for pain shots. Patient's was at the bedside stated that she told the DC doctor that he was having some more unsteadiness and g ait issues. At this time, the DC physician wanted the patient to be evaluated for possible stroke. Patient's stated that while he was in the emergency willing to be seen, he was very clear and un oriented; however, later on he became very confused. At this time, a stroke protocol was initiated. Patient underwent an echo ultrasound and CT per patient's ; however, I do not have any of this r esults. She later stated that he was discharged yesterday to the rehab facility stating that he did not have a new stroke. However, the patient's stated that he did have some dementia that they t hought most likely was causing him to feel having this intermittent confusion. Patient went to the [facility] center today. His stated that at the senior care stated that patient was sitting at the e dge of the bed, became very diaphoretic and pale and went into cardiac arrest. At this time, CPR was initiated at the senior care and EMS was called. EMS intubated the patient at the rehab facility a nd the patient was transferred here. While he was here, he became bradycardic and underwent a PEA ar rest again in the ER here. At this time, he was given the ACLS protocol including the atropine and t he epinephrine, for which the atropine was given prior to his PEA arrest for bradycardia and then ACL S was initiated. At this time, patient was given epinephrine while he was in PEA arrest, this time, he went into atrial fibrillation RVR. At this time, he was cardioverted with 200 joules and he went into another PEA arrest. ACLS was initiated and according to the nurse, she stated that he went into a PEA arrest third time. There were some concerns in terms of possible if patient was having diarrh ea; however, patient's stated that he sometimes gets diarrhea when he eats certain types of food . He did have diarrhea in the ER x1 and the stool was sent for a down for C. diff. PAST MEDICAL HISTORY: As I mentioned before, he has a history of seizures. He is on Keppra for that . He has a history of strokes. He has a history of dyslipidemia. PAST SURGICAL HISTORY: He has had a left knee replacement, left shoulder surgery, foot surgery, hiro ia repair. ALLERGIES: He is allergic to PENICILLIN; however, he has received ceftriaxone in the past. SOCIAL HISTORY: This is all obtained through the records. No history of alcohol or drug abuse. FAMILY HISTORY: The patient's mom is still living. Mother has history of diabetes. Father of alcohol-related complications at the age of 57. The patient has an ex- and is currently . He has a total of 5 kids. REVIEW OF SYSTEMS: Unable to obtain. CODE STATUS: Currently, the has made him DNR. PHYSICAL EXAMINATION: VITAL SIGNS: Temperature is 98.0, his heart rate is in the 90s. His blood pressure is around 78/80. He does have an A-line. GENERAL: He is currently intubated. HEENT: He is intubated. He is currently not on any sedation. CARDIOVASCULAR: S1, S2 present, appears to be regular. CHEST: Lungs are clear upon auscultation. No rhonchi, wheezes noted. ABDOMEN: Soft, nontender. Bowel sounds are present x2. EXTREMITIES: There is no edema. Pedal pulses are present x2. NEUROVASCULAR: Neurovascular hilliard, patient has currently is not moving any extremities. I was unabl e to do any gag reflex. LABORATORY DATA: Initially, his WBCs were 12.0 on repeating at 6:00 it was 23, hemoglobin of 11.1, h ematocrit of 33.3, platelets of 112. His chemistry shows a sodium of 140, potassium of 4.5, BUN of 5 0, creatinine of 2.40. His lactic acid was 7, repeat one was 8.2. His AST, ALT: Mildly elevated T of 252, ALT of 206. Chest x-ray did not show any acute infiltrates. We will check TSH. His coagu lation, his INR is 2.1, PTT is 62.9. ASSESSMENT AND PLAN: Patient is a 67-year-old male who presents to the hospital with the cardiac arr est. 1. Cardiac arrest, pulseless electrical activity arrest. This could be secondary to a PE versus car diac related abnormalities. We will check a CTA low-dose protocol to rule out a PE. I have reviewed the EKG, I do see some ST depressions. I did speak with the ER physician, who stated that he did se e some alternating right and left bundle branch. This patient recently in April had a stress perry t, which was normal and also had an echocardiogram which indicated an EF of 50% -55%. He has got no CAD from my review of his documents. I did speak with Cardiology in regard to patient's condition an d the EKG findings recommended to monitor the patient. I did repeat the echo for the morning a nd also got a Cardiology consult. We will also start him on broad spectrum antibiotics just to make sure that we were not missing any sepsis related problems. I will start some gentle IV hydration. Neisha crowley is currently on Levophed. 2. Acute hypoxemic respiratory failure. This is most likely secondary to his cardiac arrest. Isabel yeh has been talked to him and has been consulted. We will admit patient to the ICU and continue to monitor. 3. History of seizure disorder. We will start patient on his Keppra to avoid any seizure activities . 4. Deep venous thrombosis prophylaxis. We will put the patient on subcutaneous heparin if there is no PE. If there is a PE even though his INR is 2.1, I am not sure if this is secondary to his liver not functioning. According to the patient's , he was getting heparin subcutaneous[facility]; however, we will continue to monitor and if the CTA is negative, we will put pat ient on deep venous thrombosis prophylaxis. If it is positive, I would anticoagulate this patient.
[2018-07-06] MEDS: HumaLOG 300 UNITS/3 ML VIAL SC PRN (22:35)
[2018-07-07] MEDS: Sodium Chloride 0.9% 1,000 ML IV SCH ×3 (02:19→12:06)
[2018-07-07] MEDS: Norepinephrine 8 MG/250 ML BAG IVPB PRN ×3 (03:31→12:55)
[2018-07-07 03:49] LABS: PTT Greater than 250.0 SEC (22.9-36.1)
[2018-07-07] MEDS ORDERED: Sodium Chloride 0.9% 1,000 ML IV SCH (05:00)
[2018-07-07] MEDS: HumaLOG 300 UNITS/3 ML VIAL SC PRN (06:26)
[2018-07-07 07:02] LABS: PTT Greater than 250.0 SEC (22.9-36.1)
[2018-07-07 07:27] LABS: Actual Bicarbonate (HCO3a) 12.4 mEq/L (22-28); Base Excess (BEa) -12.1 mEq/L (-2.0 to +3.0); Calcium, Ionized 1.04 mmol/L (1.12-1.30); Hemoglobin (Hb) 9.5 g/dL (14.0-18.0); O2 Tension (PaO2) 148.6 mmHg (> 80.0); Potassium - ABG Lab 5.25 mmol/L (3.70-5.30); pH, Arterial 7.33 (7.35-7.45)
[2018-07-07 07:34] LABS: CO2 Tension 24.2 mmHg (35.0-45.0); Puncture Site LINE
[2018-07-07 08:34] LABS: ALT (SGPT) 129 U/L (8-55); AST (SGOT) 128 U/L (5-34); Alkaline Phosphatase 31 U/L (40-150); Anion Gap 16 mmol/L (10-20); BUN (Urea Nitrogen) 60 mg/dL (8.4-25.7); Bilirubin, Total 0.4 mg/dL (0.2-1.2); Calc. Creatinine Clearance 34 mL/min (70-130); Carbon Dioxide 13 mmol/L (23-31); Chloride 117 mmol/L (98-107); Estimated GFR-MDRD 28; Globulin 2.5 g/dL (2.4-3.5); Glucose 256 mg/dL (80-115); Potassium 5.4 mmol/L (3.5-5.1); Protein, Total 4.5 g/dL (5.8-8.1); Sodium 141 mmol/L (136-145)
[2018-07-07 08:40] LABS: Lactic Acid 6.8 mmol/L (0.5-2.2)
[2018-07-07] MEDS ORDERED: Prevnar 13-Val Conj/PF 0.5 ML SYRINGE IM ONE (09:00)
[2018-07-07 12:19] VITALS: TEMP 98.7
--- NOTE | 2018-07-07 12:45 | PDOC.PN ---
- Subjective Encounter Start Date: 07/07/18 Encounter Start Time: 09:00 Subjective: pt intubated, medically he is worsening. spoke with who has made him -: DNR - Objective Resuscitation Status: Resuscitation Status DNR:Do Not Resuscitate Vital Signs & Weight: Vital Signs (12 hours) Temp Pulse Resp 07/07/18 12:00 98.7 F 32 H 07/07/18 10:50 116 H 07/07/18 10:00 30 H 07/07/18 08:00 98.3 F 32 H 07/07/18 07:24 112 H 07/07/18 06:00 30 H 07/07/18 04:00 98.5 F 30 H 07/07/18 02:00 30 H Weight Weight 204 lb 9.423 oz Most Recent Monitor Data Heart Rate from ECG 110 NIBP 94/14 NIBP BP-Mean 40 Respiration from ECG 32 SpO2 100 I&O: 07/06/18 07/07/18 07/08/18 06:59 06:59 06:59 Intake Total 4130 Output Total 765 40 Balance 3365 -40 Result Diagrams: 07/06/18 19:18 07/07/18 07:30 Additional Labs: Accuchecks 07/07/18 07/06/18 03:06 22:29 POC Glucose 279 H 229 H Phys Exam - Physical Examination Neck: no nodes, no JVD, supple, full ROM Respiratory: no rales Cardiovascular: RRR, no significant murmur, no rub, gallop, irregular Gastrointestinal: soft, positive bowel sounds Dx/Plan (1) Cardiac arrest Code(s): I46.9 - CARDIAC ARREST, CAUSE UNSPECIFIED Status: Acute (2) Acute hypoxemic respiratory failure Code(s): J96.01 - ACUTE RESPIRATORY FAILURE WITH HYPOXIA Status: Acute (3) Pulmonary emboli Code(s): I26.99 - OTHER PULMONARY EMBOLISM WITHOUT ACUTE COR PULMONALE Status : Acute (4) Seizure Code(s): R56.9 - UNSPECIFIED CONVULSIONS Status: Acute - Plan pt's condition continues to deteriote, he is maxed out on pressors -: I did speak with his who has agreeded on making him DNR -: She is waiting for her family to come see him one final time * . Review of Systems - Review of Systems Other: unable to obtain - Medications/Allergies Allergies/Adverse Reactions: Allergies Allergy/AdvReac Type Severity Reaction Status Date / Time Penicillins Allergy Verified 02/28/18 02:08 Medications: Current Medications Dextrose/Water (Dextrose 50%) 25 gm SLOW IVP PRN PRN PRN Reason: Hypoglycemia Glucagon (Glucagon) 1 mg IM PRN PRN PRN Reason: Hypoglycemia Heparin Sodium (Porcine) (Heparin 1,000 Units/Ml (10 Ml)) 0 units SLOW IVP ASDIR DANISH; Protocol Last Admin: 07/06/18 20:32 Dose: 7,216 units Potassium Chloride 40 meq/ (Sodium Chloride) 270 mls @ 135 mls/hr IVPB ASDIR PRN PRN Reason: FOR SERUM K+ 2.5 - 3.5 Potassium Chloride 40 meq/ (Device) 100 mls @ 50 mls/hr IVPB ASDIR PRN PRN Reason: FOR SERUM K+ 2.5 - 3.5 Magnesium Sulfate 1 gm/ Sodium (Chloride) 102 mls @ 102 mls/hr IV PRN PRN PRN Reason: MAG LEVEL 1.4 - 2.0 Magnesium Sulfate 2 gm/ Device 100 mls @ 100 mls/hr IVPB ASDIR PRN PRN Reason: MAGNESIUM < 1.4 Potassium Phosphate 9 mmol/ (Sodium Chloride) 103 mls @ 25.75 mls/hr IVPB ASDIR PRN PRN Reason: Phosphate 1.0-1.8 Potassium Phosphate 12 mmol/ (Sodium Chloride) 254 mls @ 63.5 mls/hr IV ASDIR PRN PRN Reason: Serum phosphate 0.5-0.9 Potassium Phosphate 15 mmol/ (Sodium Chloride) 255 mls @ 63.75 mls/hr IV ASDIR PRN PRN Reason: Serum Phos < 0.5 Dextrose/Water (D5w) 1,000 mls @ 0 mls/hr IV .Q0M PRN PRN Reason: Hypoglycemia Cefepime HCl 2 gm/ Sodium (Chloride) 100 mls @ 200 mls/hr IVPB 2000 DANISH Last Admin: 07/06/18 20:25 Dose: 100 mls Heparin Sodium/Dextrose (Heparin 25,000 Units/D5w 500 Ml) 500 mls @ 0 mls/hr IVPB INF DANISH; Protocol Last Admin: 07/06/18 20:26 Dose: 500 mls Levetiracetam 500 mg/ Device 100 mls @ 200 mls/hr IVPB BID [facility] Last Admin: 07/07/18 12:05 Dose: Not Given Vancomycin HCl 1.25 gm/ Sodium (Chloride) 250 mls @ 166.667 mls/hr IVPB 2200 DANISH Last Admin: 07/06/18 22:22 Dose: 250 mls Fentanyl Citrate 2,000 mcg/ (Sodium Chloride) 100 mls @ 0 mls/hr IV INF DANISH; Protocol Stop: 08/05/18 21:28 Fentanyl Citrate (Fentanyl Bolus) 250 mls @ 0 mls/hr IVPB PRN PRN PRN Reason: Breakthrough pain/agitation Stop: 08/05/18 21:28 Sodium Chloride (Normal Saline 0.9%) 1,000 mls @ 150 mls/hr IV .Q6H40M [facility] Last Admin: 07/07/18 12:06 Dose: Not Given Norepinephrine Bitartrate (Levophed) 250 mls @ 0 mls/hr IVPB INF PRN; Protocol PRN Reason: Blood Pressure Last Admin: 07/07/18 08:30 Dose: 250 mls Insulin Human Lispro (Humalog) 0 units SC .MILD SLIDING SCALE PRN PRN Reason: Mild Correctional Scale Last Admin: 07/07/18 06:26 Dose: 4 units Lorazepam (Ativan) 2 mg SLOW IVP Q1H PRN PRN Reason: Breakthrough agitation Stop: 08/05/18 21:28 Last Admin: 07/07/18 02:00 Dose: 2 mg Magnesium Oxide (Magnesium Oxide) 400 mg PO BIDPRN PRN PRN Reason: FOR SERUM MAG 1.4 - 2.0 Magnesium Oxide (Magnesium Oxide) 800 mg PO PRN PRN PRN Reason: FOR SERUM MAG < 1.4 Miscellaneous Medication (Phos-Nak) 1 pkt PO TIDPRN PRN PRN Reason: FOR PHOS LEVEL 1.0 - 1.8 Miscellaneous Medication (Phos-Nak) 2 pkt PO TIDPRN PRN PRN Reason: FOR PHOS LEVEL 0.5 - 1.0 Miscellaneous Medication (Pharmacy To Dose) 1 each IVPB ONE PRN PRN Reason: Pharmacy to dose Stop: 07/16/18 18:47 Ccu Electrolyte (Replacement Protocol) 0 each FS PRN PRN PRN Reason: FOR ELECTROLYTE REPLACEMENT Discontinue Previous Narcotic Pain Medications And Benzodiazepines 1 each FS .ONE [facility] Stop: 08/05/18 21:28 Potassium Chloride (K-Dur) 40 meq PO ASDIR PRN PRN Reason: FOR SERUM K+ 2.5 - 3.5 Potassium Chloride (Klor-Con) 40 meq PER TUBE ASDIR PRN PRN Reason: FOR SERUM K+ 2.5-3.5 Sodium Chloride (Flush - Normal Saline) 10 ml IVF Q12HR [facility] Last Admin: 07/07/18 12:05 Dose: Not Given Sodium Chloride (Flush - Normal Saline) 10 ml IVF PRN PRN PRN Reason: Saline Flush
--- NOTE | 2018-07-08 12:58 | DIS ---
DATE OF ADMISSION: 07/06/2018 DATE OF : 07/07/2018 DISCHARGE DIAGNOSES: As of the followin. Cardiac arrest, pulseless electrical activity arrest. 2. Acute hypoxemic respiratory failure. 3. Pulmonary emboli. 4. Seizures. HOSPITAL COURSE: Patient is a 67-year-old male who presented from a [facility] to our ER, status pos t cardiac arrest. The patient was intubated in the field. In the ER, the patient had 3 PEA arrest. At this time, hat former was notified. The patient did get a CTA, which indicated bilateral pulmonary emboli, multiple bilateral anterior fractures, most likely from the CPR. Patient initially was put on heparin drip. Initially, patient's made the patient DNR; however, after I updated h er with the results for the CTA, she wanted to give the patient a try and changed him to FULL CODE. The patient's condition continued to deteriorate throughout the night. He started seizing. At this time, in the morning, the patient's made him a DNR and the patient on 07/07. The patien t and the patient's family were updated.
--- NOTE | 2018-07-08 14:07 | CON ---
DATE OF CONSULTATION: 07/07/2018 HISTORY: Slava Wilkerson is a 67-year-old gentleman who was brought in the ER at [address] Finn Staley from the ER notified me that patient was intubated. He was to be transferred to the ICU with CPR in progress for a pulseless rhythm. He was in the rehab with a diagnosis of CVA and UTI, was just recently discharged. He normally seeks care at the [facility]. According to Dr. Staley, as per my conversation, family was pretty much agreea ble to comfort care. Waiting for family members to arrive and I was told at that time they may consi shannan withdrawal of care. However, he was admitted to the ICU after he underwent extensive imaging studies by the admitting corby angelo which included a CT of the chest showed rib fractures and evidence of pulmonary emboli. Most of the pulmonary emboli . There is a fractured rib also was seen on the CAT scan. Additionally , the CT brain was performed. No hemorrhage was seen. Admitting chest x-ray was normal. He has got a right central line in place. He was discharged on 05/28/2018. His is at the bedside. PAST MEDICAL HISTORY: Seizure disorders, apparently he has noncompliance, hypertension, previous str joselito, hyperlipidemia. MEDICATIONS: His rehab medication has included thiamine, Crestor, Zestril 40, Neurontin 300, Pepcid 20, Plavix 75, divalproex 1000, Atenolol 25. He is now one Maxipime, heparin, Ativan and vancomycin. ALLERGIES: PENICILLIN. PHYSICAL EXAMINATION: GENERAL: Agonal respiration on the vent. VITAL SIGNS: Pulse 112, blood pressure 92/60. HEENT: Pupils 2 mm. CHEST: Decreased breath sounds, no wheezing. CARDIAC: Normal S1-S2. No gallops. ABDOMEN: Soft. No mass. LABORATORY DATA: He had a blood gas done this morning which shows pO2 is 148, pCO2 of 733, rate of 3 0. His creatinine 2.7, BUN 60, glucose 68. IMPRESSION: 1. Cerebrovascular accident. 2. Anoxic injury. 3. Shock; therefore, pulmonary emboli seen on the CAT scan, history seizure disorders. PLAN: The states she is waiting for her daughters to arrive from [place], will probably co nsider extubation and comfort care. CRITICAL CARE TIME: 30 minutes.
== END 2018-07-07 13:22 | disposition expired | DRG 296 ==
LOC: ERS 14:20 → CCU 17:30
PROVIDERS: ADMIT Emergency Medicine; ATTEND Internal Medicine
PROC: 5A12012 Performance of Cardiac Output, Single, Manual (ICD-10-PCS; principal; 2018-07-06)
PROC: 03HY32Z Insertion of Monitoring Device into Upper Artery, Percutaneous Approach (ICD-10-PCS; 2018-07-06)
PROC: 4A133B1 Monitoring of Arterial Pressure, Peripheral, Percutaneous Approach (ICD-10-PCS; 2018-07-06)
PROC: 4A133J1 Monitoring of Arterial Pulse, Peripheral, Percutaneous Approach (ICD-10-PCS; 2018-07-06)
PROC: 02HV33Z Insertion of Infusion Device into Superior Vena Cava, Percutaneous Approach (ICD-10-PCS; 2018-07-06)
PROC: 5A1935Z Respiratory Ventilation, Less than 24 Consecutive Hours (ICD-10-PCS; 2018-07-06)
DX: I46.9 Cardiac arrest, cause unspecified (principal); J96.01 Acute respiratory failure with hypoxia; I26.99 Other pulmonary embolism without acute cor pulmonale; S22.43XA Multiple fractures of ribs, bilateral, initial encounter for closed fracture; G93.1 Anoxic brain damage, not elsewhere classified; I69.90 Unspecified sequelae of unspecified cerebrovascular disease; I48.91 Unspecified atrial fibrillation; E78.5 Hyperlipidemia, unspecified; Z88.0 Allergy status to penicillin; Z66 Do not resuscitate; X58.XXXA Exposure to other specified factors, initial encounter; Y93.89 Activity, other specified; Y92.89 Other specified places as the place of occurrence of the external cause; Z51.5 Encounter for palliative care; G40.909 Epilepsy, unspecified, not intractable, without status epilepticus; Z79.01 Long term (current) use of anticoagulants
CPT/HCPCS: 36415; 36416; 36556; 36620; 51702; 70450; 71045; 71275; 72125; 74177; 80053; 81003; 81015; 82550; 82553; 82805; 83605; 83690; 84484; 85025; 85610; 85730; 87040; 87086; 92950; 93005; 93306; 94002; 94003; 94760; 96365; 96366; 96367; 96375; 96376; 99292; J0171; J0461; J0692; J1644; J1953; J2060; J3010; J3370; J7050